=== PATIENT | female | born 1995 | race Two or more races ===

== ENCOUNTER 2017-02-06 15:24 | Emergency (ER) | payer SELFPAY ==
[~2017-02-06] VITALS: Ht 154.9 cm; Wt 77.1 kg
--- NOTE | 2017-02-06 16:10 | PHYS DOC ---
Adult General Chief Complaint Chief Complaint: ABDOMINAL PAIN IN HPI HPI Patient is a 21 year old female who presents with lower abdominal pain possible dysuria no nausea vomiting or diarrhea no fever. last LMP is October , reports being , some spotting, ; Review of Systems Review of Systems Constitutional: Denies fever or chills [] Eyes: Denies change in visual acuity, redness, or eye pain [] HENT: Denies nasal congestion or sore throat [] Respiratory: Denies cough or shortness of breath [] Cardiovascular: No additional information not addressed in HPI [] GI: Denies abdominal pain, nausea, vomiting, bloody stools or diarrhea [] : Denies dysuria or hematuria [] Musculoskeletal: Denies back pain or joint pain [] Integument: Denies rash or skin lesions [] Neurologic: Denies headache, focal weakness or sensory changes [] Endocrine: Denies polyuria or polydipsia [ All review of systems are negative except as mentioned in the history of present illness] Allergies Allergies Allergies Coded Allergies Type Severity Reaction Last Updated Verified No Known Drug Allergies 02/06/17 No Physical Exam Physical Exam Constitutional: Well developed, well nourished, no acute distress, non-toxic appearance. [] HENT: Normocephalic, atraumatic, bilateral external ears normal, oropharynx moist, no oral exudates, nose normal. [] Eyes: PERRLA, EOMI, conjunctiva normal, no discharge. [] Neck: Normal range of motion, no tenderness, supple, no stridor. [] Cardiovascular:Heart rate regular rhythm, no murmur [] Lungs & Thorax: Bilateral breath sounds clear to auscultation [] Abdomen: Bowel sounds normal, soft, no tenderness, no masses, no pulsatile masses. [Very mild suprapubic tenderness] Skin: Warm, dry, no erythema, no rash. [] Back: No tenderness, no CVA tenderness. [] Extremities: No tenderness, no cyanosis, no clubbing, ROM intact, no edema. [] Neurologic: Alert and oriented X 3, normal motor function, normal sensory function, no focal deficits noted. [] Psychologic: Affect normal, judgement normal, mood normal. exam: External exam was unremarkable; speculum exam some slight trace frothy discharge cervix is closed no bleeding or clots; bimanual exam mild tenderness of the uterus and right adnexa, left asymptomatic. [] Current Patient Data Vital Signs Vital Signs Date Time Temp Pulse Resp B/P (MAP) Pulse Ox O2 Delivery O2 Flow Rate FiO2 02/06/17 17:26 77 14 113/65 (81) 100 02/06/17 15:40 99.1 Room Air 99.1 Lab Values Laboratory Tests Test 02/06/17 14:48 02/06/17 16:00 02/06/17 16:30 POC Urine HCG, Qualitative Hcg positive (Negative) Urine Collection Type Unknown Urine Color Yellow Urine Clarity Clear Urine pH 7.5 Urine Specific [place] >=1.030 Urine Protein Negative mg/dL (NEG-TRACE) Urine Glucose (UA) Negative mg/dL (NEG) Urine Ketones (Stick) Negative mg/dL (NEG) Urine Blood Negative (NEG) Urine Nitrite Negative (NEG) Urine Bilirubin Negative (NEG) Urine Urobilinogen Dipstick 1.0 mg/dL (0.2 mg/dL) Urine Leukocyte Esterase Small (NEG) Urine RBC 0 /HPF (0-2) Urine WBC 1-4 /HPF (0-4) Urine Squamous Epithelial Cells Many /LPF Urine Bacteria Moderate /HPF (0-FEW) Urine Mucus Marked /LPF White Blood Count 10.9 x10^3/uL (4.0-11.0) Red Blood Count 4.09 x10^6/uL (3.50-5.40) Hemoglobin 11.9 g/dL (12.0-15.5) L Hematocrit 33.5 % (36.0-47.0) L Mean Corpuscular Volume 82 fL (79-100) Mean Corpuscular Hemoglobin 29 pg (25-35) Mean Corpuscular Hemoglobin Concent 36 g/dL (31-37) Red Cell Distribution Width 14.0 % (11.5-14.5) Platelet Count 235 x10^3/uL (140-400) Neutrophils (%) (Auto) 69 % (31-73) Lymphocytes (%) (Auto) 24 % (24-48) Monocytes (%) (Auto) 6 % (0-9) Eosinophils (%) (Auto) 1 % (0-3) Basophils (%) (Auto) 0 % (0-3) Neutrophils # (Auto) 7.5 x10^3uL (1.8-7.7) Lymphocytes # (Auto) 2.6 x10^3/uL (1.0-4.8) Monocytes # (Auto) 0.6 x10^3/uL (0.0-1.1) Eosinophils # (Auto) 0.1 x10^3/uL (0.0-0.7) Basophils # (Auto) 0.0 x10^3/uL (0.0-0.2) Maternal Serum HCG Beta Subunit 17445 mIU/mL (0-5) H Sodium Level 140 mmol/L (136-145) Potassium Level 3.6 mmol/L (3.5-5.1) Chloride Level 105 mmol/L (98-107) Carbon Dioxide Level 27 mmol/L (21-32) Anion Gap 8 (6-14) Blood Urea Nitrogen 5 mg/dL (7-20) L Creatinine 0.5 mg/dL (0.6-1.0) L Estimated GFR (Cockcroft-Gault) 157.3 BUN/Creatinine Ratio 10 (6-20) Glucose Level 84 mg/dL (70-99) Calcium Level 9.1 mg/dL (8.5-10.1) Total Bilirubin 0.4 mg/dL (0.2-1.0) Aspartate Amino Transferase (AST) 16 U/L (15-37) Alanine Aminotransferase (ALT) 21 U/L (14-59) Alkaline Phosphatase 56 U/L (46-116) Total Protein 7.0 g/dL (6.4-8.2) Albumin 2.8 g/dL (3.4-5.0) L Albumin/Globulin Ratio 0.7 (1.0-1.7) L Lipase 147 U/L (73-393) Laboratory Tests 02/06/17 16:30 Laboratory Tests 02/06/17 16:30 Microbiology 02/06/17 Wet Prep - Final, Complete EKG EKG [] Radiology/Procedures Radiology/Procedures Pelvic sonogram [] intrauterine 16 weeks heart tones 140 no other abnormality seen this is per radiology report Course & Med Decision Making Course & Med Decision Making Pertinent Labs and Imaging studies reviewed. (See chart for details) [Pelvic sono showed an IUP as documented above. Chemistries and CBC were unremarkable, quantitative hCG 20 5K, Rh+, urinalysis had a lot of epithelial cells and is considered contaminated, wet prep no trichomonas, GC chlamydia pending at point of discharge.] Dragon Disclaimer Dragon Disclaimer This electronic medical record was generated, in whole or in part, using a voice recognition dictation system. Departure Departure Impression: Primary Impression: related pelvic pain in first trimester, antepartum Disposition: HOME, SELF-CARE Condition: STABLE Patient Instructions: Abdominal Pain During , [id number] Scripts Vits W-Ca,Fe,Fa(<1MG) ( VITAMINS) 1 Each Tablet 1 TAB PO DAILY, #90 TAB 3 Refills Prov: DAWIT ALDANA MD 02/06/17 DAWIT ALDANA MD Feb 06, 2017 16:10
[2017-02-06 16:14] LABS: BILIRUBIN,URINE NEGATIVE (NEG); GLUCOSE,URINE NEGATIVE (NEG); NITRITE,URINE NEGATIVE (NEG); PH,URINE 7.5; PROTEIN,URINE NEGATIVE (NEG-TRACE)
[2017-02-06 16:22] LABS: BACTERIA,URINE MODERATE /HPF (0-FEW); RBC,URINE 0 /HPF (0-2); SQUAMOUS EPITHELIAL CELL,UR MANY /LPF
[2017-02-06 16:39] LABS: BASO % 0 % (0-3); EOS % 1 % (0-3); HEMATOCRIT 33.5 % (36.0-47.0); HEMOGLOBIN 11.9 g/dL (12.0-15.5); LYMPH # 2.6 x10^3/uL (1.0-4.8); LYMPH % 24 % (24-48); MEAN CORPUSCULAR HEMOGLOBIN 29 pg (25-35); MEAN CORPUSCULAR HGB CONC 36 g/dL (31-37); MEAN CORPUSCULAR VOLUME 82 fL (79-100); MONO % 6 % (0-9); NEUT % 69 % (31-73); PLATELET COUNT 235 x10^3/uL (140-400); RED BLOOD COUNT 4.09 x10^6/uL (3.50-5.40); WHITE BLOOD COUNT 10.9 x10^3/uL (4.0-11.0)
[2017-02-06 16:57] LABS: CALCIUM 9.1 mg/dL (8.5-10.1); CREATININE 0.5 mg/dL (0.6-1.0); GFR 157.3; POTASSIUM 3.6 mmol/L (3.5-5.1)
[2017-02-06 16:59] LABS: ALBUMIN 2.8 g/dL (3.4-5.0); ALBUMIN/GLOBULIN RATIO 0.7 (1.0-1.7); TOTAL BILIRUBIN 0.4 mg/dL (0.2-1.0)
--- NOTE | 2017-02-06 17:10 | RAD ---
Obstetric ultrasound 02/06/2017 Indication: Pelvic pain, spotting. patient with unsure LMP. Comparison: None available Technique: Sonographic transabdominal evaluation of the pelvis was performed utilizing grayscale imaging. Findings: The placenta is located along the anterior wall and normal in appearance. Normal volume amniotic fluid. Biparietal diameter measures 3.2 cm compatible with a gestational age of 16 weeks and 0 days. Head circumference measures 12.0 cm. Abdominal circumference measures 10.6 cm. Femur length measures 2.2 cm compatible with a gestational age of 16 weeks and 4 days. Head circumference to abdominal circumference ratio is 1.14. Estimated weight is approximately 158 grams. Cervix is normal in size measuring 36 mm. heart tones measure 139 bpm. Right ovary measures 3.2 x 1.6 cm and is normal. Arterial and venous waveform is noted. Left ovary is obscured. No significant pelvic free fluid is present. Impression: Viable intrauterine identified with gestational age measuring approximately 16 weeks and 2 days. heart tones are present measuring 39 bpm. There is persistent clinical concern, short-term follow-up evaluation with pelvic ultrasound is recommended.
[2017-02-06 17:26] VITALS: BP 113/65
[2017-02-06] MEDS ORDERED: PREN1TAB58 PO (17:34)
== END 2017-02-06 17:50 | disposition home or self-care (01) ==
LOC: ER 15:24
DX: O26.892 Other specified pregnancy related conditions, second trimester (principal); R10.2 Pelvic and perineal pain; R10.30 Lower abdominal pain, unspecified; Z3A.16 16 weeks gestation of pregnancy
CPT/HCPCS: 36415; 76805; 80053; 81001; 81025; 83690; 84702; 85027; 86901; 87086; 87491; 87591; 99285; Q0111